=== PATIENT | male | born 1940 | race Caucasian/White ===

== ENCOUNTER 2017-03-07 07:44 | Emergency (ER) | payer MEDICARE, BC ==
[~2017-03-07] VITALS: Ht 182.9 cm; Wt 127.3 kg
[2017-03-07 07:46] VITALS: BP 122/92; PULSE 90; TEMP 99
[2017-03-07] MEDS ORDERED: MOBIC15 MG PO (08:11)
[2017-03-07] MEDS ORDERED: PROSCAR 5MG5 MG PO (08:12)
[2017-03-07] MEDS ORDERED: PRINIVIL20 MG PO (08:12)
[2017-03-07] MEDS ORDERED: HYGROTON 2525 MG/TAB PO (08:12)
[2017-03-07 08:28] LABS: BASO # 0.1 (0.0-0.2); BASO % 0.5 % (0.0-2.0); EOS # 0.1 (0.0-0.7); EOS % 0.6 % (0-4.0); GRAN # 10.7 (1.4-6.5); GRAN % 82.3 % (42.2-75.2); HEMATOCRIT 45.9 % (42.0-52.0); HEMOGLOBIN 16.1 g/dl (13.5-18.0); LYMPH # 1.1 (1.2-3.4); LYMPH % 8.7 % (20.0-51.0); MEAN CELL VOLUME 91 fl (80.0-100.0); MEAN CORPUSCULAR HEMOGLOBIN 32 pg (27.0-31.0); MEAN CORPUSCULAR HGB CONC 35 g/dl (33.0-37.0); MEAN PLATELET VOLUME 9.5 fl (7.4-10.4); MONO % 7.5 % (1.7-9.3); PLATELET COUNT 211 K/mm3 (130-400); RED BLOOD COUNT 5.03 M/mm3 (4.20-5.60); REDCELL DISTRIBUTION WIDTH-CV 12.3 % (11.5-14.5)
[2017-03-07 08:33] LABS: PH 5 (5-8); SQUAMOUS EPITHELIAL None Seen /hpf; URINE APPEARANCE Clear; URINE BACTERIA None Seen /hpf; URINE BILIRUBIN Negative (NEGATIVE); URINE BLOOD 1+ (NEGATIVE); URINE COLOR Yellow; URINE GLUCOSE Negative (NEGATIVE); URINE KETONE Negative (NEGATIVE); URINE RBC 0-2 /hpf; URINE UROBILINOGEN Negative (NEGATIVE); URINE WBC 0-2 /hpf
[2017-03-07 08:39] LABS: ADJUSTED CALCIUM 9.3 mg/dL (8.4-10.2); ALBUMIN 4.3 gm/dL (3.5-5.0); BILIRUBIN,TOTAL 0.9 mg/dL (0.0-1.0); CALCIUM 9.5 mg/dL (8.4-10.2); CREATININE, serum 1.88 mg/dL (0.66-1.25); POTASSIUM 4.4 mmol/L (3.4-5.0); TOTAL PROTEIN 7.7 gm/dL (6.4-8.2)
[2017-03-07] MEDS ORDERED: PERCOCET 325 MG1 TA2 PO (10:42)
== END 2017-03-07 11:16 | disposition home or self-care (01) ==
LOC: COL.ER 07:44
PROVIDERS: Family Medicine
DX: N20.1 Calculus of ureter (principal); I10 Essential (primary) hypertension; N40.0 Benign prostatic hyperplasia without lower urinary tract symptoms
CPT/HCPCS: J1170; J2270; J2405; J7030

== ENCOUNTER 2017-03-08 07:11 | Observation (INO) | payer MEDICARE, BC ==
[2017-03-08] VITALS (8 sets, daily range): BP systolic 146–164; BP diastolic 78–92; PULSE 86–100; TEMP 98.1–98.3
[~2017-03-08] VITALS: Ht 182.9 cm; Wt 125.0 kg
[~2017-03-08 07:11] MED LIST: HYGROTON 2525 MG/TAB PO; MOBIC15 MG PO; PERCOCET 325 MG1 TA2 PO; PRINIVIL20 MG PO; PROSCAR 5MG5 MG PO
[2017-03-08 07:56] LABS: BASO # 0.1 (0.0-0.2); BASO % 0.5 % (0.0-2.0); EOS # 0.1 (0.0-0.7); EOS % 0.5 % (0-4.0); GRAN % 80.2 % (42.2-75.2); HEMATOCRIT 45.2 % (42.0-52.0); HEMOGLOBIN 15.5 g/dl (13.5-18.0); LYMPH # 1.1 (1.2-3.4); LYMPH % 9.1 % (20.0-51.0); MEAN CELL VOLUME 92 fl (80.0-100.0); MEAN CORPUSCULAR HEMOGLOBIN 31 pg (27.0-31.0); MEAN CORPUSCULAR HGB CONC 34 g/dl (33.0-37.0); MEAN PLATELET VOLUME 9.3 fl (7.4-10.4); MONO # 1.2 (0.1-0.6); MONO % 9.4 % (1.7-9.3); PLATELET COUNT 198 K/mm3 (130-400); RED BLOOD COUNT 4.93 M/mm3 (4.20-5.60); REDCELL DISTRIBUTION WIDTH-CV 12.3 % (11.5-14.5); WHITE BLOOD COUNT 12.5 K/mm3 (4.8-10.8)
[2017-03-08 08:01] LABS: ADJUSTED CALCIUM 9.1 mg/dL (8.4-10.2); ALBUMIN 4.2 gm/dL (3.5-5.0); CALCIUM 9.3 mg/dL (8.4-10.2); CREATININE, serum 1.91 mg/dL (0.66-1.25); POTASSIUM 4.6 mmol/L (3.4-5.0); TOTAL PROTEIN 7.6 gm/dL (6.4-8.2)
[2017-03-08 08:50] LABS: PH 5 (5-8); SQUAMOUS EPITHELIAL None Seen /hpf; URINE APPEARANCE Clear; URINE BACTERIA None Seen /hpf; URINE BILIRUBIN Negative (NEGATIVE); URINE BLOOD 1+ (NEGATIVE); URINE COLOR Yellow; URINE GLUCOSE Negative (NEGATIVE); URINE KETONE Negative (NEGATIVE); URINE RBC 0-2 /hpf; URINE UROBILINOGEN Negative (NEGATIVE); URINE WBC 0-2 /hpf
== END 2017-03-08 18:00 | disposition home or self-care (01) ==
LOC: COL.ER 07:11 → SURG 08:18 → SDCO 08:18 → SURG 08:20
PROVIDERS: Emergency Medicine
DX: N20.1 Calculus of ureter (principal); M19.90 Unspecified osteoarthritis, unspecified site; G47.33 Obstructive sleep apnea (adult) (pediatric); N40.1 Benign prostatic hyperplasia with lower urinary tract symptoms; R35.0 Frequency of micturition; I10 Essential (primary) hypertension; E66.01 Morbid (severe) obesity due to excess calories; Z68.36 Body mass index [BMI] 36.0-36.9, adult; Z96.653 Presence of artificial knee joint, bilateral; Z80.42 Family history of malignant neoplasm of prostate
CPT/HCPCS: C1769; G0378; J0690; J1100; J1170; J1885; J2405; J2704; J3010; J7030; Q9967

== ENCOUNTER 2019-05-15 07:05 | Inpatient (IN) | payer MEDICARE, BC ==
[~2019-05-15] VITALS: Ht 182.9 cm; Wt 117.8 kg
[2019-05-15 08:00] LABS: HEMATOCRIT 47.4 % (42.0-52.0); HEMOGLOBIN 15.8 g/dl (13.5-18.0); MEAN CELL VOLUME 94 fl (80.0-100.0); MEAN CORPUSCULAR HEMOGLOBIN 31 pg (27.0-31.0); MEAN CORPUSCULAR HGB CONC 33 g/dl (33.0-37.0); MEAN PLATELET VOLUME 9.7 fl (7.4-10.4); PLATELET COUNT 216 K/mm3 (130-400); RED BLOOD COUNT 5.06 M/mm3 (4.20-5.60); REDCELL DISTRIBUTION WIDTH-CV 13.4 % (11.5-14.5)
[2019-05-15] MEDS ORDERED: FLOMAX 0.40.4 MG/CAP PO (08:00)
[2019-05-15] MEDS ORDERED: ASPIRIN 81M81 MG/TA2 PO (08:00)
[2019-05-15] MEDS ORDERED: LIPITOR20 MG PO (08:01)
[2019-05-15] MEDS ORDERED: BRILINTA90 MG PO (08:02)
[2019-05-15] MEDS ORDERED: LOPRESSOR 225 MG/TAB PO (08:03)
[2019-05-15 08:10] LABS: ALANINE AMINOTRANSFERASE 48 U/L (21-72); ALBUMIN 4.2 gm/dL (3.5-5.0); ALKALINE PHOSPHATASE 89 U/L (50-136); ANION GAP 13 mmol/L (7-16); AST,SGOT 30 U/L (15-37); BILIRUBIN,TOTAL 1.9 mg/dL (0.0-1.0); BLOOD UREA NITROGEN 23 mg/dL (9-20); CARBON DIOXIDE 26 mmol/L (22-30); CHLORIDE 97 mmol/L (98-107); CREATININE, serum 1.15 (0.66-1.25); GLUCOSE 132 mg/dL (74-106); LIPASE 33 U/L (23-300); POTASSIUM 4.5 mmol/L (3.4-5.0); SODIUM 136 mmol/L (137-145); TOTAL PROTEIN 7.7 gm/dL (6.4-8.2)
[2019-05-15 08:21] LABS: TROPONIN-I < 0.012 ng/mL (0.000-0.035)
[2019-05-15 08:43] LABS: BAND 12 % (0-10); LYMPHOCYTE 6 % (20.0-51.0); NEUTROPHILS 75 % (42.0-75.2); PLATELET ESTIMATE NORMAL (NORMAL)
[2019-05-15 09:55] LABS: INR 1.2 (0.8-3.0); PROTHROMBIN TIME 14.4 SECONDS (9.7-12.8)
--- NOTE | 2019-05-15 11:00 | NUR ---
PT ADMITTED TO MEDICAL FLOOR AT THIS TIME. PT WAS ASSISTED TO THE BED. DIDNT HAVE C/O PAIN AT THIS TIME. STATED HE WILL NOTIFY US UPON NEED FOR PAIN MEDS. IV FLUIDS INFUSING, WITH ABX OF LEVAQUIN INFUSING AT THIS TIME.
[2019-05-15 11:02] VITALS: BP 105/70; PULSE 87; TEMP 98
[2019-05-15 13:40] LABS: COLLECTION METHOD CLEAN CATCH
[2019-05-15 13:46] LABS: MUCOUS Present /lpf; PH 5 (5-8); SQUAMOUS EPITHELIAL 0-2 /hpf; URINE APPEARANCE Clear; URINE BACTERIA None Seen /hpf; URINE BILIRUBIN Negative (NEGATIVE); URINE BLOOD Negative (NEGATIVE); URINE COLOR Yellow; URINE GLUCOSE Negative (NEGATIVE); URINE KETONE Negative (NEGATIVE); URINE LEUKOCYTE ESTERASE Negative (NEGATIVE); URINE NITRATE Negative (NEGATIVE); URINE PROTEIN(semi-quant) Negative (NEGATIVE); URINE RBC 0-2 /hpf; URINE UROBILINOGEN Negative (NEGATIVE)
--- NOTE | 2019-05-15 16:00 | NUR ---
CONSENT SIGNED FOR [facility] AT THIS TIME. XRAY IN TO SEE PATIENT AT THIS TIME. PT STATED HES READY FOR SURGERY. PAIN MEDS GIVEN NEEDED
--- NOTE | 2019-05-15 16:35 | NUR ---
PT GOING TO SURGERY AT THIS TIME.
[2019-05-15 16:36] VITALS: BP 124/70; PULSE 99; TEMP 97.8
[2019-05-15 23:42] VITALS: BP 108/73; PULSE 64; TEMP 97.3
[2019-05-16 03:39] VITALS: BP 145/77; PULSE 111; TEMP 98
[2019-05-16 06:14] LABS: HEMATOCRIT 40.3 % (42.0-52.0); MEAN CELL VOLUME 94 fl (80.0-100.0); MEAN CORPUSCULAR HEMOGLOBIN 31 pg (27.0-31.0); MEAN CORPUSCULAR HGB CONC 33 g/dl (33.0-37.0); MEAN PLATELET VOLUME 9.9 fl (7.4-10.4); PLATELET COUNT 154 K/mm3 (130-400); REDCELL DISTRIBUTION WIDTH-CV 13.5 % (11.5-14.5)
[2019-05-16 06:22] LABS: ALBUMIN 3.3 gm/dL (3.5-5.0); BILIRUBIN,TOTAL 0.9 mg/dL (0.0-1.0); CALCIUM 8.4 mg/dL (8.4-10.2); CREATININE, serum 1.06 (0.66-1.25); TOTAL PROTEIN 6.5 gm/dL (6.4-8.2)
[2019-05-16 06:24] LABS: HEMOGLOBIN 13.3 g/dl (13.5-18.0)
[2019-05-16 07:46] LABS: BAND 16 % (0-10); METAMYELOCYTE 1 % (0-0); NEUTROPHILS 79 % (42.0-75.2); PLATELET ESTIMATE NORMAL (NORMAL)
--- NOTE | 2019-05-16 08:22 | NUR ---
Pt had a difficult time trying to get comfortable after returning to his room after surgery. Alert and Orientated. Family at side. Pt refusing to take in deep breaths. RT in room and sets pt up with IS. Encouraged pt to use frequently. HOB elevated. Dilaudid 0.25mg IV given when pt request and then alternate with percocet 1 tab. VS monitored per protocol after returning to room. All VS within normal limits. Was given Benadryl 25mg IV for rash/red area to mid to lower back and around abdomen. Bandaids x3 to abdomen. First one at umbil. was draining bright blood around midnight so reinforced with 2x2's and secured with bandaids. Second one to upper right quad with scant shadow drainage and the third one was covered with shadow drainage to all of white pad. No further draining noted during the night. Sits up on side of bed. Stands to use urinal. Good output. Taking fluids with no problems. Call light within reach.
--- NOTE | 2019-05-16 09:00 | NUR ---
Patient is awake and alert in bed, SCDs are in place. States he has mild pain to his abdomen and complains of having a rash. Back is red, lower back is worse and is itching to slightly around to abdomen. Did speak with Dr. Aldrich and hospitalist. Dr. Aldrich is discontinuing the dilaudid and received order from hospitalist for benadryl PRN. Patient states that he is not hurting as long as he is still. Was observed standing up without difficulty, did grimace. Offered to remove SCDs temporarily so patient could ambulat and he declined stated he was going to lay back down. Did encourage patient to be more active. Call light and personal belongings are within reach.
--- NOTE | 2019-05-16 09:05 | NUR ---
SW met with the patient to discuss discharge plan. The patient lives in [place] with his , Julia ([phone]). He reports independence with ADLs and does not have any DME. The patient's PCP is Dr. Brunilda Gurrola and he states that he receives his medications through an online pharmacy. He could not recall the name. The patient does not have advanced directives completed, but he states that him and his are working on them. The patient plans to return back home with his upon discharge. The patient was using oxygen. SW to continue to monitor.
[2019-05-16 09:11] VITALS: BP 125/77; PULSE 113; TEMP 97.9
--- NOTE | 2019-05-16 10:42 | NUR ---
Initial visit; Patient thanked Panel Maker for offering encouragement and God's blessings.
[2019-05-16 11:48] VITALS: BP 118/80; PULSE 95; TEMP 98.2
[2019-05-16 17:32] VITALS: BP 154/76; PULSE 90; TEMP 97.8
[2019-05-16 21:54] VITALS: BP 139/86; PULSE 95; TEMP 98.1
[2019-05-16 23:21] VITALS: BP 141/79; PULSE 81; TEMP 98.4
[2019-05-17 03:10] VITALS: BP 125/68; PULSE 84; TEMP 97.8
[2019-05-17 07:03] LABS: HEMATOCRIT 40.7 % (42.0-52.0); HEMOGLOBIN 13.5 g/dl (13.5-18.0); MEAN CELL VOLUME 93 fl (80.0-100.0); MEAN CORPUSCULAR HEMOGLOBIN 31 pg (27.0-31.0); MEAN CORPUSCULAR HGB CONC 33 g/dl (33.0-37.0); MEAN PLATELET VOLUME 10.4 fl (7.4-10.4); PLATELET COUNT 205 K/mm3 (130-400); RED BLOOD COUNT 4.37 M/mm3 (4.20-5.60); REDCELL DISTRIBUTION WIDTH-CV 13.4 % (11.5-14.5)
[2019-05-17 07:15] LABS: ALBUMIN 3.5 gm/dL (3.5-5.0); BILIRUBIN,TOTAL 0.6 mg/dL (0.0-1.0); CALCIUM 8.9 mg/dL (8.4-10.2); CREATININE, serum 1.08 (0.66-1.25); POTASSIUM 4.1 mmol/L (3.4-5.0); TOTAL PROTEIN 6.8 gm/dL (6.4-8.2)
[2019-05-17 07:46] LABS: BAND 13 % (0-10); LYMPHOCYTE 5 % (20.0-51.0); NEUTROPHILS 77 % (42.0-75.2)
[2019-05-17 07:49] LABS: BURR CELLS 1+; PLATELET ESTIMATE NORMAL (NORMAL)
[2019-05-17 08:18] VITALS: BP 148/81; PULSE 80; TEMP 97.9
[2019-05-17 12:09] VITALS: BP 122/60; PULSE 75; TEMP 97.9
--- NOTE | 2019-05-17 14:19 | NUR ---
PT AMBULATING IN HALLS WITH .
[2019-05-17 16:41] VITALS: BP 146/78; PULSE 85; TEMP 97.8
[2019-05-17 19:10] VITALS: BP 136/65; PULSE 87; TEMP 97.6
[2019-05-17 23:46] VITALS: BP 126/70; PULSE 72; TEMP 98.7
[2019-05-18 04:12] VITALS: BP 110/64; PULSE 79; TEMP 98.1
[2019-05-18 07:51] LABS: BASO # 0.1 (0.0-0.2); BASO % 0.9 % (0.0-2.0); EOS # 0.4 (0.0-0.7); EOS % 3.9 % (0-4.0); GRAN # 7.6 (1.4-6.5); GRAN % 73.1 % (42.2-75.2); HEMATOCRIT 40.5 % (42.0-52.0); HEMOGLOBIN 13.3 g/dl (13.5-18.0); LYMPH # 1.2 (1.2-3.4); LYMPH % 11.8 % (20.0-51.0); MEAN CELL VOLUME 94 fl (80.0-100.0); MEAN CORPUSCULAR HEMOGLOBIN 31 pg (27.0-31.0); MEAN CORPUSCULAR HGB CONC 33 g/dl (33.0-37.0); PLATELET COUNT 175 K/mm3 (130-400); RED BLOOD COUNT 4.33 M/mm3 (4.20-5.60); REDCELL DISTRIBUTION WIDTH-CV 13.7 % (11.5-14.5)
[2019-05-18 07:59] LABS: CALCIUM 8.6 mg/dL (8.4-10.2); CREATININE, serum 1.18 (0.66-1.25)
[2019-05-18 08:34] VITALS: BP 128/70; BP 98/78; PULSE 73; TEMP 98
[2019-05-18] MEDS ORDERED: LEVAQUIN 5500 MG/TA1 PO (09:40)
--- NOTE | 2019-05-18 09:42 | NUR ---
Pt assessment complete. Pt sitting up in the chair upon entry, he is A/O x4. His breathing is even and unlabored on RA. Pt denies SOB. No pain at this time. Pt denies N/V. Reports he has not had a BM in a couple days, scheduled Colace administered. Pt ready to discharge home, POC discussed with him. Call light within reach.
--- NOTE | 2019-05-18 10:40 | NUR ---
Discharge paperwork and instructions reviewed with patient and his . All questions answered at this time. IV to RAC dc'd, catheter tip intact. Pt walked out of facility at this time by staff member.
== END 2019-05-18 10:41 | disposition home or self-care (01) | DRG 405 ==
LOC: COL.ER 07:05 → MEDICAL 09:17
PROVIDERS: Emergency Medicine; Physician Assistant; ADMIT Surgery
PROC: 0FC04ZZ Extirpation of Matter from Liver, Percutaneous Endoscopic Approach (ICD-10-PCS; 2019-05-15)
PROC: 0FT44ZZ Resection of Gallbladder, Percutaneous Endoscopic Approach (ICD-10-PCS; principal; 2019-05-15 16:30)
DX: K80.00 Calculus of gallbladder with acute cholecystitis without obstruction (principal); J18.1 Lobar pneumonia, unspecified organism; R65.10 Systemic inflammatory response syndrome (SIRS) of non-infectious origin without acute organ dysfunction; Z88.0 Allergy status to penicillin; Z88.8 Allergy status to other drugs, medicaments and biological substances; I25.2 Old myocardial infarction; Z87.442 Personal history of urinary calculi; Z95.5 Presence of coronary angioplasty implant and graft; I10 Essential (primary) hypertension; I95.9 Hypotension, unspecified; Z79.82 Long term (current) use of aspirin; Z79.891 Long term (current) use of opiate analgesic; I25.10 Atherosclerotic heart disease of native coronary artery without angina pectoris; Z79.02 Long term (current) use of antithrombotics/antiplatelets; M19.012 Primary osteoarthritis, left shoulder; G47.33 Obstructive sleep apnea (adult) (pediatric); L23.3 Allergic contact dermatitis due to drugs in contact with skin; T36.95XA Adverse effect of unspecified systemic antibiotic, initial encounter
CPT/HCPCS: 99223; 99232-AI; A9284; G0378; J1170; J1200; J1885; J1956; J2270; J2405; J2704; J3010; J7030; Q9967